=== PATIENT | male | born 1950 | race Caucasian/White ===

== ENCOUNTER 2025-03-18 12:55 | Outpatient (CLI) | payer OTHER | END 2025-03-18 12:56 | disposition home or self-care (01) | LOC: MRI 12:55 | PROVIDERS: ATTEND Family Medicine | DX: R41.3 Other amnesia (principal); R25.1 Tremor, unspecified; R26.89 Other abnormalities of gait and mobility; I63.9 Cerebral infarction, unspecified; G93.89 Other specified disorders of brain | CPT/HCPCS: 70551 ==

== ENCOUNTER 2025-04-10 09:03 | Outpatient (CLI) | payer OTHER | END 2025-04-10 09:04 | disposition home or self-care (01) | LOC: RAD 09:03 | PROVIDERS: ATTEND Internal Medicine | DX: R06.00 Dyspnea, unspecified (principal) | CPT/HCPCS: 71046 ==